=== PATIENT | male | born 2000 | race Caucasian/White ===

== ENCOUNTER → 2018-12-30 07:43 | Outpatient (CLI) | payer BC, SELFPAY ==
--- NOTE | 2018-12-30 07:51 | CA_ITS ---
APPROVED REPORT EXAM: Comprehensive 2D, Doppler, and color-flow Echocardiogram Treatment Plant Operator: Dali Humphrey RVT Ht: 6 ft 0 in Wt: 176lbs BSA: 2.02 BP: 140/90 mmHg Indications: Hypertension 2D Dimensions LVOT 1.90 cm (M/F) 1.5-2.5 M-Mode Dimensions RVDd 1.70 cm (0.9-2.6) LA Diam 2.30 cm (1.9-4.0) LVDd 3.90 cm (3.5-5.7) Ao Diam 2.50 cm (2.0-3.7) LVDs 2.20 cm (3.5-5.7) AV Cusp 2.00 cm (1.5-2.6) IVSd 1.00 cm (0.6-1.1) PWd 1.30 cm (0.6-1.1) EF (Teich) 75.40% FS 43.60% EDV (Teich) 65.90 mL ESV (Teich) 16.20 mL LV Diastology E/A Ratio 1.5 MED E' 10.50 (< 7 cm/sec) E'/MED E' Ratio 9.30 (>14) LAT E' 16.10 (<10 cm/sec) E/LAT E' Ratio 6.00 (>14) Aortic Valve AoV Peak Alfonzo. 118.00 (50-130 cm/s) AO Peak GR. 6.00 mmHg Mitral Valve MV E Max Alfonzo. 97.20 (40-130 cm/s) MV A Velocity 65.60 (40-130 cm/s) E/A Ratio 1.50 Pulmonary Valve PA Accel Time 239.00 (>120 msec) Left Ventricle Left atrium is normal size, left ventricle is normal size, there is preserved left ventricular systolic function, visually estimated ejection fraction 55% with no regional wall motion abnormality. There is no concentric left ventricular hypertrophy seen. Right Ventricle Right atrium and right ventricular normal size and contractility. Aortic Valve Aortic valve is grossly normal, there is no aortic stenosis aortic insufficiency. Mitral Valve Mitral valve is grossly normal, there is no mitral stenosis, there is trace mitral regurgitation. Tricuspid Valve Tricuspid valve is normal, there is mild tricuspid regurgitation. Tricuspid regurgitation jet velocity is inadequate for calculation of the right ventricular systolic pressure. Pulmonic Valve Pulmonic valve is poorly visualized. Great Vessels Aortic root is normal size. Pericardium No significant pericardial effusion noted. Conclusion 1. Normal left ventricular size, preserved left ventricular systolic function, visually estimated ejection fraction 55% with no regional wall motion abnormality. No concentric left ventricular hypertrophy seen, diastolic parameters are within normal range. 2. Trace mitral and mild tricuspid regurgitation. 3. No significant pericardial effusion noted. Electronically signed by : Richardson Blanca, 12/31/2018 06:19:29
== END ==
PROVIDERS: PCP Family Medicine; Visit Provider Family Medicine
DX: I10 Essential (primary) hypertension (principal)
CPT/HCPCS: 93306

== ENCOUNTER 2020-08-08 08:22 | Emergency (ER) | payer BC, SELFPAY ==
[2020-08-08] VITALS (7 sets, daily range): BP systolic 124–177; BP diastolic 76–105; PULSE 67–99; RESP 15–18; TEMP 36.8; O2SAT 97–99; BMI 24.4
--- NOTE | 2020-08-08 08:16 | ECG_ITS ---
APPROVED REPORT Exam: Resting ECG HR:99 bpm ECG Measurements Heart Rate 99 AXES NH 148 P 79 QRSd 92 QRS 72 QT 334 T 32 QTc 428 Conclusion Normal sinus rhythm Normal ECG Electronically signed by : Mio Cabezas, 08/10/2020 08:51:58
--- NOTE | 2020-08-08 08:23 | XR_ITS ---
PROCEDURE INFORMATION: Exam: XR Chest Exam date and time: 08/08/2020 8:23 AM Age: 20 years old Clinical indication: Patient HX: Chest pain x 1 year worse today , sheilded TECHNIQUE: Imaging protocol: XR of the chest. Views: 2 views. COMPARISON: No relevant prior studies available. FINDINGS: Lungs: Unremarkable. No consolidation. Pleural spaces: Blunted left costophrenic sulcus, although no effusion seen on lateral view. Likely scarring. No pneumothorax. Heart/Mediastinum: Unremarkable. No cardiomegaly. Bones/joints: Unremarkable. IMPRESSION: 1. No acute findings. 2. Blunted left costophrenic sulcus, although no effusion seen on lateral view. Likely scarring.
[2020-08-08 08:46] LABS: Basophils % 0.4 % (0.1-2.0); Eosinophils # 0.1 K/mm3 (0.0-0.4); Eosinophils % 2.3 % (0.1-12.0); Hematocrit 50.2 % (42.0-52.0); Hemoglobin 16.6 g/dL (14.1-18.0); Lymphocytes # 1.7 K/mm3 (0.7-4.5); Lymphocytes % 30.4 % (10-50); Mean Corpuscular Volume 87.9 fl (80-94); Mean Platelet Volume 8.3 fl (7.4-10.4); Monocytes # 0.4 K/mm3 (0.1-1.0); Monocytes % 8.1 % (1.7-9.3); Neutrophils # 3.2 K/mm3 (1.8-7.8); Neutrophils % 58.8 % (37.0-80.0); Platelet Count 226 K/mm3 (142-424); Red Blood Count 5.71 M/mm3 (4.60-6.20); Red Cell Distribution Width 12.7 % (11.5-17.5); White Blood Count 5.4 K/mm3 (4.8-10.8)
[2020-08-08 08:51] LABS: Anion Gap 10.6 mEq/L (5-15); Blood Urea Nitrogen 8 mg/dl (9-20); Calcium 9.5 mg/dl (8.4-10.2); Carbon Dioxide 26 mmol/L (22.0-30.0); Chloride 107 mmol/L (98-107); Creatinine Clearance Estimated 145 mL/min (50-200); Estimated Glomerular Filt Rate 106 ml/min (>60); GFR (African American) 128 ML/MIN (>60); Glucose 99 mg/dl (74-100); Potassium 3.6 mmoL/L (3.5-5.1); Sodium 140 mmol/L (136-145)
--- NOTE | 2020-08-08 08:56 | PC.NURSE ---
Pt to rad.
[2020-08-08 09:03] LABS: Troponin I < 0.01 ng/ml (0.00-0.034)
[2020-08-08 09:17] LABS: D-Dimer 0.89 ug/mL (0.0-0.5)
--- NOTE | 2020-08-08 10:31 | PC.NURSE ---
Pt states he is pain free at this time.
--- NOTE | 2020-08-08 10:33 | CT_ITS ---
PROCEDURE INFORMATION: Exam: CTA Chest With Contrast Exam date and time: 08/08/2020 10:33 AM Age: 20 years old Clinical indication: Patient HX: Chest pain , elevated d-dimer .89; Additional info: Chest pain, elevated ddimer TECHNIQUE: Imaging protocol: Computed tomographic angiography of the chest with contrast. 3D rendering (Not supervised by radiologist): MIP and/or 3D reconstructed images were created by the technologist. Radiation optimization: All CT scans at this facility use at least one of these dose optimization techniques: automated exposure control; mA and/or kV adjustment per patient size (includes targeted exams where dose is matched to clinical indication); or iterative reconstruction. Contrast material: ISOVUE 370; Contrast volume: 70 ml; Contrast route: INTRAVENOUS (IV); COMPARISON: CR XR CHEST 2V 08/08/2020 8:48 AM FINDINGS: Pulmonary arteries: Negative for acute pulmonary embolism. Aorta: Unremarkable. No aortic aneurysm. No aortic dissection. Lungs: Unremarkable. No consolidation. No masses. Pleural spaces: Unremarkable. No pneumothorax. No pleural effusion. Heart: Unremarkable. No cardiomegaly. No pericardial effusion. Lymph nodes: Unremarkable. No enlarged lymph nodes. Bones/joints: Unremarkable. No acute fracture. Soft tissues: Unremarkable. IMPRESSION: Negative for acute pulmonary embolism.
--- NOTE | 2020-08-08 11:35 | [facility].EDCP ---
ED Disposition Clinical Impression: Nonspecific chest pain Disposition: Home, Self-Care Condition on Discharge: Good Instructions: DI for Atypical Chest Pain Referrals: Provider,MD Angeline [Primary Care Provider] - Fredy Millan MD [Staff Physician] - - Critical Care Critical Care Time: No Attestation: On 08/08/20, the high probability of a clinically significant, sudden or life threatening deterioration of the following system(s) required my full and direct attention, intervention and personal management. The time I documented below is in addition to time spent performing reported procedures but includes the following listed in this critical care notation. Medical Decision Making - Medical Records Medical records reviewed: Yes: I reviewed the patient's medical records. - Shane Inquiry Pt receiving controlled substance: No Vital Signs: 08/08/20 08:22 08/08/20 08:34 08/08/20 09:00 Temperature 98.3 F Temperature Source Oral Pulse Rate 91 H 95 H Pulse Rate [Right] 99 H Respiratory Rate 18 15 Blood Pressure 158/87 H 132/89 Blood Pressure [Right Arm] 177/105 H Blood Pressure Mean [Right Arm] 129 02 Sat by Pulse Oximetry 99 99 97 08/08/20 09:30 08/08/20 10:32 08/08/20 11:15 Temperature Temperature Source Pulse Rate 77 69 67 Pulse Rate [Right] Respiratory Rate 17 16 Blood Pressure 131/77 141/76 H 126/78 Blood Pressure [Right Arm] Blood Pressure Mean [Right Arm] 02 Sat by Pulse Oximetry 98 97 97 - Lab Data Lab Results 08/08/20 08:27: WBC 5.4, RBC 5.71, Hgb 16.6, Hct 50.2, MCV 87.9, MCH 29.0, MCHC 33.0, RDW 12.7, Plt Count 226, MPV 8.3, Neut % (Auto) 58.8, Lymph % (Auto) 30.4, Valley % (Auto) 8.1, Eos % (Auto) 2.3, Baso % (Auto) 0.4, Neut # (Auto) 3.2, Lymph # (Auto) 1.7, Valley # (Auto) 0.4, Eos # (Auto) 0.1, Baso # (Auto) 0.0 08/08/20 08:27: Sodium 140, Potassium 3.6, Chloride 107, Carbon Dioxide 26, Anion Gap 10.6, BUN 8 L, Creatinine 0.90, Estimated Creat Clear 145, Estimated GFR 106, Est GFR ( Amer) 128, Glucose 99, Calcium 9.5, Troponin I < 0.01 08/08/20 08:27: D-Dimer 0.89 H Result diagrams: 08/08/20 08:27 08/08/20 08:27 Orders (Tests/Meds): ED MEDICATIONS Generic Name Dose Route Start Last Admin Trade Name Freq PRN Reason Stop Dose Admin Sodium Chloride 1,000 mls @ 999 mls/hr 08/08/20 10:45 08/08/20 10:43 Sod Chlor 0.9% 1000ml Bag IV 08/08/20 11:45 999 mls/hr .Q1H1M YUE Administration Discontinued Medications Generic Name Dose Route Start Last Admin Trade Name Freq PRN Reason Stop Dose Admin Iopamidol 70 ml 08/08/20 10:55 08/08/20 10:57 Iopamidol-370 (76%);100ml Bottle IV 08/08/20 10:56 70 ml ONCE ONE Administration Sodium Chloride 50 ml 08/08/20 10:55 08/08/20 10:57 0.9 % Sodium Chloride 50 Ml Vial IV 08/08/20 10:56 50 ml ONCE ONE Administration Sodium Chloride 10 ml 08/08/20 10:55 08/08/20 10:57 Sodium Chloride 0.9% 10ml Syr (Rad Only) IV 08/08/20 10:56 10 ml ONCE ONE Administration ORDERS Category Date Time Status Troponin I Q3H Lab 08/08/20 11:30 Ordered Troponin I Q3H Lab 08/08/20 14:30 Ordered - Radiology Data #1 Image(s): Chest Image Reviewed: Yes I reviewed the patient's radiology results, Yes I discussed the image results w/the radiologist, Yes I have reviewed radiologist's interpretation Preliminary Findings: Normal/NAD - CT Data CT Scan: Chest Time Received: 11:[address] Reviewed: Yes: I have reviewed the patient's CT results, I have viewed the radiologist's interpretation Preliminary Findings: Normal/NAD - ECG Data Tracing #1 ECG initial impression date: 08/08/20 ECG initial impression time: 08:18 ECG normal with no acute: arrhythmias, ischemia, conduction abnormalities, chamber hypertrophy Normal Sinus Rhythm: Yes - Reevaluation(s) Time: 11:39 Reevaluation #1: On reevaluation, patient is pain-free. Negative troponin. CTA unremar
== END 2020-08-08 11:46 | disposition home or self-care (01) ==
PROVIDERS: Emergency Provider Emergency Medicine
DX: R07.89 Other chest pain (principal); Z88.1 Allergy status to other antibiotic agents
CPT/HCPCS: 71046; 71275; 80048; 84484; 85025; 85378; 93005; 96365; 99282; Q9967

== ENCOUNTER → 2020-12-22 13:25 | Outpatient (CLI) | payer BC, SELFPAY | PROVIDERS: PCP Family Medicine; Visit Provider Nurse Practitioner | DX: Z20.822 Contact with and (suspected) exposure to COVID-19 (principal) | CPT/HCPCS: C9803; U0003; U0005 ==

== ENCOUNTER → 2021-03-29 14:55 | Outpatient (CLI) | payer BC, SELFPAY | PROVIDERS: PCP Family Medicine; Visit Provider Nurse Practitioner | DX: Z20.822 Contact with and (suspected) exposure to COVID-19 (principal) | CPT/HCPCS: C9803; U0003; U0005 ==

== ENCOUNTER → 2021-04-23 11:53 | Outpatient (CLI) | payer BC, SELFPAY | PROVIDERS: Visit Provider Nurse Practitioner Family | DX: U07.1 COVID-19 (principal) | CPT/HCPCS: C9803; U0003; U0005 ==

== ENCOUNTER → 2021-06-25 11:14 | Outpatient (CLI) | payer BC, SELFPAY ==
[2021-06-25 13:59] LABS: Basophils % 0.4 % (0.1-2.0); Eosinophils % 0.2 % (0.1-12.0); Hematocrit 48.9 % (42.0-52.0); Hemoglobin 15.8 g/dL (14.1-18.0); Lymphocytes # 0.4 K/mm3 (0.7-4.5); Lymphocytes % 5.1 % (10-50); Mean Corpuscular HGB Conc 32.3 g/dL (31.8-35.4); Mean Corpuscular Hemoglobin 30.3 pg (27.0-31.2); Mean Corpuscular Volume 93.8 fl (80-94); Mean Platelet Volume 9.7 fl (7.4-10.4); Monocytes # 0.4 K/mm3 (0.1-1.0); Monocytes % 5.5 % (1.7-9.3); Neutrophils # 6.5 K/mm3 (1.8-7.8); Neutrophils % 88.8 % (37.0-80.0); Platelet Count 228 K/mm3 (142-424); Red Blood Count 5.21 M/mm3 (4.60-6.20); Red Cell Distribution Width 13.5 % (11.5-17.5); White Blood Count 7.3 K/mm3 (4.8-10.8)
[2021-06-25 14:26] LABS: MANUAL DIFFERENTIAL MANUAL DIFFERENTIAL (MANUAL DIFF)
[2021-06-25 18:18] LABS: Eosinophils % 1 % (0-3); Lymphocytes % 4 % (10-50); Neutrophils % 86 % (42-76); Platelet Estimate Normal; RBC Morphology Normal; Total Cells Counted 100; Toxic Granulation 1+
== END ==
PROVIDERS: PCP Family Medicine; Visit Provider Family Medicine
DX: Z20.822 Contact with and (suspected) exposure to COVID-19 (principal); J10.1 Influenza due to other identified influenza virus with other respiratory manifestations
CPT/HCPCS: 36415; 85007; 85025; 87275; 87276; C9803; U0003; U0005

== ENCOUNTER → 2021-12-19 08:26 | Outpatient (CLI) | payer BC, SELFPAY ==
[2021-12-19 08:41] LABS: Basophils # 0.1 K/mm3 (0-0.2); Basophils % 1.4 % (0.1-2.0); Eosinophils # 0.2 K/mm3 (0.0-0.4); Eosinophils % 3.5 % (0.1-12.0); Hematocrit 53.3 % (42.0-52.0); Hemoglobin 17.3 g/dL (14.1-18.0); Lymphocytes # 1.6 K/mm3 (0.7-4.5); Mean Corpuscular HGB Conc 32.4 g/dL (31.8-35.4); Mean Corpuscular Hemoglobin 29.9 pg (27.0-31.2); Mean Corpuscular Volume 92.4 fl (80-94); Mean Platelet Volume 8.2 fl (7.4-10.4); Monocytes # 0.4 K/mm3 (0.1-1.0); Monocytes % 6.4 % (1.7-9.3); Neutrophils # 3.5 K/mm3 (1.8-7.8); Neutrophils % 60.6 % (37.0-80.0); Platelet Count 265 K/mm3 (142-424); Red Blood Count 5.76 M/mm3 (4.60-6.20); Red Cell Distribution Width 12.6 % (11.5-17.5); White Blood Count 5.8 K/mm3 (4.8-10.8)
[2021-12-19 09:07] LABS: Alanine Aminotransferase 28 U/L (12-78); Albumin Level 4.5 g/dl (3.5-5.0); Albumin/Globulin Ratio 1.6 (1.1-1.8); Alkaline Phosphatase 73 U/L (38-126); Aspartate Amino Transferase 29 U/L (17-59); Bilirubin,Total 1.4 mg/dl (0.2-1.3); Blood Urea Nitrogen 15 mg/dl (9-20); Calcium 9.2 mg/dl (8.4-10.2); Carbon Dioxide 28 mmol/L (22.0-30.0); Chloride 106 mmol/L (98-107); Chol/HDL Ratio 3.3 (1-3.5); Cholesterol 194 mg/dl (140-200); Estimated Glomerular Filt Rate 105 ml/min (>60); GFR (African American) 127 ML/MIN (>60); Globulin 2.9 g/dL (1.3-3.2); Glucose 98 mg/dl (74-100); HDL Cholesterol 58 mg/dl (40-60); Sodium 140 mmol/L (136-145); Total Protein,Serum 7.4 g/dl (6.3-8.2); Triglycerides 82 mg/dl (30-150); VLDL Cholesterol 16 mg/dL (0-40)
[2021-12-19 09:18] LABS: Direct LDL Cholesterol 100.74 mg/dL (100-129)
[2021-12-19 09:37] LABS: Thyroid Stimulating Hormone 2.29 uIU/mL (0.465-4.68)
== END ==
PROVIDERS: PCP Family Medicine; Visit Provider Family Medicine
DX: R00.0 Tachycardia, unspecified (principal); I10 Essential (primary) hypertension; R53.83 Other fatigue; E78.5 Hyperlipidemia, unspecified
CPT/HCPCS: 36415; 80053; 80061; 84443; 85025

== ENCOUNTER → 2022-01-27 10:09 | Outpatient (CLI) | payer BC, SELFPAY ==
[2022-01-27 19:19] LABS: Basophils # 0.1 K/mm3 (0-0.2); Basophils % 0.4 % (0.1-2.0); Eosinophils # 0.1 K/mm3 (0.0-0.4); Eosinophils % 0.7 % (0.1-12.0); Hematocrit 50.9 % (42.0-52.0); Hemoglobin 16.2 g/dL (14.1-18.0); Lymphocytes # 1.2 K/mm3 (0.7-4.5); Mean Corpuscular HGB Conc 31.8 g/dL (31.8-35.4); Mean Corpuscular Hemoglobin 29.3 pg (27.0-31.2); Mean Platelet Volume 9.9 fl (7.4-10.4); Monocytes # 0.8 K/mm3 (0.1-1.0); Monocytes % 6.2 % (1.7-9.3); Neutrophils # 10.3 K/mm3 (1.8-7.8); Neutrophils % 82.8 % (37.0-80.0); Platelet Count 266 K/mm3 (142-424); Red Blood Count 5.53 M/mm3 (4.60-6.20); Red Cell Distribution Width 12.7 % (11.5-17.5); White Blood Count 12.5 K/mm3 (4.8-10.8)
== END ==
PROVIDERS: PCP Family Medicine; Visit Provider Family Medicine
DX: Z20.822 Contact with and (suspected) exposure to COVID-19 (principal)
CPT/HCPCS: 36415; 85025; 87275; 87276; C9803; U0003; U0005

== ENCOUNTER 2022-01-28 11:47 | Emergency (ER) | payer BC, SELFPAY ==
[2022-01-28 12:51] VITALS: BP 134/78; PULSE 105; RESP 16; TEMP 37.7; O2SAT 98; BMI 14.6
--- NOTE | 2022-01-28 12:52 | EXP.UTC ---
Discharge Plan Disposition Patient Disposition: Home, Self-Care Prescriptions Prescriptions: New azithromycin [Zithromax] 250 mg tablet 250 mg PO UD DOSE PK Qty: 6 0RF Rx Instructions: Take two (2) tablets today, then one (1) tablet days #2 thru #5 benzonatate [benzonatate] 100 mg capsule 100 mg PO TIDP PRN (Reason: Cough) Qty: 30 0RF methylprednisolone 4 mg Tablets,Dose Pack 4 mg PO DIRECTED Qty: 21 0RF No Action metoprolol succinate 100 mg tablet extended release 24 hr PO Label Comments: TAKE 1 TABLET BY MOUTH ONCE DAILY Referrals Follow up/Referrals: David Obrien MD [Primary Care Provider] - See instructions Activity Restrictions/Add. Instructions Additional Instructions/Restrictions: Drink plenty of fluids. Take tylenol or ibuprofen for pain or fever. Take the medications as directed. Follow up with your regular doctor. GO TO THE ER FOR ANY WORSENING SYMPTOMS Clinical Impressions Clinical Impression: Pharyngitis Instructions Patient Instructions: DI for Pharyngitis/Tonsillopharyngitis -- Adult Discharge ED Provider: Yohan Vivas [facility] General Stated complaint: sore throat here yesterday for f/u Time Seen by Provider: 01/28/22 12:52 History of Present Illness Provider Complaint: He is back to f/u today after being here yesterday for sore throat. He states that his throat has got more sore. He wants to be checked for strep throat. Related Data Home Medications Medication Instructions Recorded Confirmed metoprolol succinate 100 mg ea PO 04/23/21 04/23/21 tablet,extended release 24 hr Previous Rx's Medication Instructions Recorded azithromycin 250 mg tablet 250 mg PO UD DOSE PK #6 tabs 01/28/22 (Zithromax) benzonatate 100 mg capsule 100 mg PO TIDP PRN Cough #30 caps 01/28/22 methylprednisolone 4 mg tablets in 4 mg PO DIRECTED #21 tabs 01/28/22 a dose pack Allergies Allergy/AdvReac Type Severity Reaction Status Date / Time amoxicillin Allergy Verified 01/28/22 12:55 clavulanic acid Allergy Verified 01/28/22 12:55 [facility] Social History Smoking Status: Never smoker alcohol intake: current substance use type: denies use current occupational status: employed Travel in the last 8 weeks: None ROS Obtained: Yes All systems reviewed & no additional complaints except as documented Constitutional Constitutional: Reports chills and Reports fever(s) Eyes Eyes: Denies eye discharge ENT Ears, Nose, Mouth, and Throat: Reports as per HPI Cardiovascular Cardiovascular: Denies chest pain Respiratory Respiratory: Denies chest congestion and Reports cough Gastrointestinal Gastrointestingal: Reports nausea; Denies abdominal pain, constipation, cramping, diarrhea or vomiting Musculoskeletal Musculoskeletal: Denies arthralgias Integumentary/Breasts Skin/Breast: Denies rash Neurologic Neurologic: Denies paresthesias Physical Exam General General appearance: alert and in no apparent distress Head Head exam: atraumatic, normocephalic and normal inspection Eye Eye exam: Present normal appearance, PERRL and EOMI ENT ENT exam: Present mucous membranes moist and normal external ear exam Expanded ENT Exam TM/Canal exam: Bilateral TM: erythema and bulging Nose exam: Absent sinus tenderness Mouth exam: Present normal external inspection; Absent drooling Teeth exam: Present normal inspection Throat exam: Present tonsillar erythema, tonsillomegaly and tonsillar exudate Neck Neck exam: Present normal inspection, full ROM and trachea midline; Absent tenderness, meningismus or lymphadenopathy Chest Chest inspection: Present normal inspection and symmetric chest wall rise; Absent tenderness Respiratory Respiratory exam: Present normal lung sounds bilaterally; Absent respiratory distress, wheezes or stridor Cardiovascular Cardiovascular exam: Present regular ra
[2022-01-28 13:19] LABS: UTC Strep Screen (Rapid) Negative (Negative)
[2022-01-28 13:20] VITALS: BP 134/78; PULSE 105; RESP 16; TEMP 37.7
== END 2022-01-28 13:22 | disposition home or self-care (01) ==
PROVIDERS: Emergency Provider Nurse Practitioner Family; PCP Family Medicine
DX: J02.9 Acute pharyngitis, unspecified (principal); R50.9 Fever, unspecified; R05.9 Cough, unspecified; Z79.52 Long term (current) use of systemic steroids; Z79.899 Other long term (current) drug therapy; Z88.0 Allergy status to penicillin; Z88.1 Allergy status to other antibiotic agents; Z88.3 Allergy status to other anti-infective agents; Z88.8 Allergy status to other drugs, medicaments and biological substances
CPT/HCPCS: 87880; 99213; G0463

== ENCOUNTER 2022-02-11 17:21 | Emergency (ER) | payer BC, SELFPAY ==
[2022-02-11 18:47] VITALS: BP 138/79; PULSE 82; RESP 16; TEMP 36.9; O2SAT 98; BMI 22.4
--- NOTE | 2022-02-11 18:53 | EXP.UTC ---
Discharge Plan Disposition Patient Disposition: Home, Self-Care Condition: Good Prescriptions Prescriptions: New azithromycin [Zithromax] 250 mg tablet 250 mg PO UD DOSE PK Qty: 6 0RF Rx Instructions: Take two (2) tablets today, then one (1) tablet days #2 thru #5 [id number] [Bromfed DM] 2-30-10 mg/5 mL Syrup 5 ml PO Q6H PRN (Reason: Cough) Qty: 240 0RF No Action metoprolol succinate 100 mg tablet extended release 24 hr PO Label Comments: TAKE 1 TABLET BY MOUTH ONCE DAILY azithromycin [Zithromax] 250 mg tablet 250 mg PO UD DOSE PK Qty: 6 0RF Rx Instructions: Take two (2) tablets today, then one (1) tablet days #2 thru #5 benzonatate [benzonatate] 100 mg capsule 100 mg PO TIDP PRN (Reason: Cough) Qty: 30 0RF methylprednisolone 4 mg Tablets,Dose Pack 4 mg PO DIRECTED Qty: 21 0RF Referrals Follow up/Referrals: David Obrien MD [Primary Care Provider] - See instructions Activity Restrictions/Add. Instructions Additional Instructions/Restrictions: Drink plenty of fluids. Take tylenol or ibuprofen for pain or fever. Take the medications as directed. Follow up with your regular doctor. GO TO THE ER FOR ANY WORSENING SYMPTOMS Clinical Impressions Clinical Impression: Pharyngitis, Sinusitis Instructions Patient Instructions: DI for Pharyngitis/Tonsillopharyngitis -- Adult Discharge ED Provider: Yohan Vivas [facility] General Stated complaint: sore throat,Body Aches [place] Mode of Arrival: Ambulatory Source of Information: Patient Limitations: No Limitations Time Seen by Provider: 02/11/22 18:51 Description of Symptoms (Recalled from Triage Doc. by RN): pt comes in with c/o sore throat, cough, body aches. symptoms began a few days ago HEENT Symptoms (Recalled from RN notes): Yes Resp Symptoms (Recalled from RN notes): Yes Skin Symptoms (Recalled from RN notes): No MS Symptoms (Recalled from RN notes): No Functional Status (Recalled from RN notes): n/a History of Present Illness Provider Complaint: He states that he has had a sore throat and he has felt bad for the past 2 days. Related Data Home Medications Medication Instructions Recorded Confirmed metoprolol succinate 100 mg ea PO 04/23/21 04/23/21 tablet,extended release 24 hr Previous Rx's Medication Instructions Recorded azithromycin 250 mg tablet 250 mg PO UD DOSE PK #6 tabs 01/28/22 (Zithromax) benzonatate 100 mg capsule 100 mg PO TIDP PRN Cough #30 caps 01/28/22 methylprednisolone 4 mg tablets in 4 mg PO DIRECTED #21 tabs 01/28/22 a dose pack azithromycin 250 mg tablet 250 mg PO UD DOSE PK #6 tabs 02/11/22 (Zithromax) [id number]-gtrlqhacbavsckh-[id number] 5 ml PO Q6H PRN Cough #240 mL 02/11/22 2 mg-30 mg-10 mg/5 mL oral syrup (Bromfed DM) Allergies Allergy/AdvReac Type Severity Reaction Status Date / Time amoxicillin Allergy Verified 02/11/22 18:51 clavulanic acid Allergy Verified 02/11/22 18:51 Worker's Comp Is this a Worker's Comp case?: No PFSH PFSH Social History Smoking Status: Never smoker alcohol intake: current substance use type: denies use current occupational status: employed Travel in the last 8 weeks: None ROS Obtained: Yes All systems reviewed & no additional complaints except as documented Constitutional Constitutional: Denies chills and Denies fever(s) Eyes Eyes: Denies eye discharge ENT Ears, Nose, Mouth, and Throat: Reports as per HPI Cardiovascular Cardiovascular: Denies chest pain Respiratory Respiratory: Denies chest congestion and Reports cough Gastrointestinal Gastrointestingal: Reports nausea; Denies abdominal pain, constipation, cramping, diarrhea or vomiting Musculoskeletal Musculoskeletal: Denies arthralgias Integumentary/Breasts Skin/Breast: Denies rash Neurologic Neurologic: Denies paresthesias Physical Exam Gener
[2022-02-11 18:55] LABS: UTC Influenza A Antigen Negative (Negative); UTC Strep Screen (Rapid) Negative (Negative)
[2022-02-11 18:56] LABS: UTC Influenza B Antigen Negative (Negative)
[2022-02-11 19:18] VITALS: BP 138/79; PULSE 82; RESP 16; TEMP 36.9
== END 2022-02-11 19:19 | disposition home or self-care (01) ==
PROVIDERS: Emergency Provider Nurse Practitioner Family; PCP Family Medicine
DX: J32.9 Chronic sinusitis, unspecified (principal); J02.9 Acute pharyngitis, unspecified
CPT/HCPCS: 87804; 87880; 99212; G0463

== ENCOUNTER 2023-04-07 15:04 | Emergency (ER) | payer BC, SELFPAY ==
[2023-04-07 15:40] VITALS: BP 154/94; PULSE 106; RESP 19; TEMP 37.6; O2SAT 97; BMI 23.4
--- NOTE | 2023-04-07 15:45 | EXP.UTC ---
Discharge Plan Disposition Patient Disposition: Home, Self-Care Condition: Good Prescriptions Prescriptions: New azithromycin [Zithromax] 250 mg tablet 250 mg PO UD DOSE PK Qty: 6 0RF Rx Instructions: Take two (2) tablets today, then one (1) tablet days #2 thru #5 methylprednisolone 4 mg Tablets,Dose Pack 4 mg PO DIRECTED 6 Days Qty: 21 0RF Rx Instructions: Take 1 pack as directed for 6 days [id number]-[id number] [Bromfed DM] 2-30-10 mg/5 mL Syrup 5 ml PO Q6H PRN (Reason: Cough) Qty: 240 0RF No Action metoprolol succinate 100 mg tablet extended release 24 hr 100 ea PO DAILY Patient Comments: TAKE 1 TABLET BY MOUTH ONCE DAILY Referrals Follow up/Referrals: David Obrien MD [Primary Care Provider] - See instructions Activity Restrictions/Add. Instructions Additional Instructions/Restrictions: Drink plenty of fluids. Take tylenol or ibuprofen for pain or fever. Take the medications as directed. Follow up with your regular doctor. GO TO THE ER FOR ANY WORSENING SYMPTOMS Clinical Impressions Clinical Impression: Sinusitis, Bronchitis Instructions Patient Instructions: DI for Sinusitis, Sinusitis Discharge ED Provider: Yohan Vivas [facility] General Stated complaint: cough,congestion Time Seen by Provider: 04/07/23 15:45 History of Present Illness Provider Complaint: He states that for the past 5 days he has had chest and sinus congestion. He has had fever and malaise also. Related Data Home Medications Medication Instructions Recorded Confirmed metoprolol succinate 100 mg 100 ea PO DAILY 04/23/21 04/07/23 tablet,extended release 24 hr Previous Rx's Medication Instructions Recorded azithromycin 250 mg tablet 250 mg PO UD DOSE PK #6 tabs 04/07/23 (Zithromax) bxczwezyyajqjkc-mybcpijujyezcxe-NZ 5 ml PO Q6H PRN Cough #240 mL 04/07/23 2 mg-30 mg-10 mg/5 mL oral syrup (Bromfed DM) methylprednisolone 4 mg tablets in 4 mg PO DIRECTED 6 days #21 tabs 04/07/23 a dose pack Allergies Allergy/AdvReac Type Severity Reaction Status Date / Time amoxicillin Allergy Verified 02/11/22 18:51 clavulanic acid Allergy Verified 02/11/22 18:51 [facility] Disclaimer: The information contained in this section may have been updated after the patient was seen, as this information can be updated by other users. Medical History (Updated 04/07/23 @ 16:29 by Yohan Vivas APRN) Hypertension Social History Smoking Status: Never smoker alcohol intake: current substance use type: denies use current occupational status: employed Travel in the last 8 weeks: None ROS Obtained: Yes All systems reviewed & no additional complaints except as documented Constitutional Constitutional: Reports poor appetite Eyes Eyes: Reports system reviewed and no additional complaints, except as documented ENT Ears, Nose, Mouth, and Throat: Reports as per HPI Cardiovascular Cardiovascular: Reports system reviewed and no additional complaints, except as documented and Denies chest pain Respiratory Respiratory: Denies shortness of breath, Denies chest congestion, Reports cough, Denies stridor and Denies wheezing Gastrointestinal Gastrointestingal: Reports system reviewed and no additional complaints, except as documented; Denies abdominal pain, diarrhea or vomiting Musculoskeletal Musculoskeletal: Reports system reviewed and no additional complaints, except as documented and Denies arthralgias Integumentary/Breasts Skin/Breast: Reports system reviewed and no additional complaints, except as documented and Denies rash Neurologic Neurologic: Denies paresthesias Allergic/Immunologic Allergic/Immunologic: Denies wheezing Physical Exam General General appearance: alert and in no apparent distress Eye Eye exam: Present normal appearance, PERRL and EOMI ENT ENT exam: Present mucous membranes moist and normal external ear exam Expanded ENT Exam External ear exam: Present normal external inspection TM/Canal exam: Bilateral TM: erythema and bulging Nose exam: Absent sinus tenderness Nasal speculum exam: Bilateral: normal Mouth exam: Present normal external inspection; Absent drooling Teeth exam: Present normal inspection Throat exam: Present tonsillar erythema and tonsillomegaly Neck Neck exam: Present normal inspection, full ROM and trachea midline; Absent tenderness, lymphadenopathy or thyromegaly Chest Chest inspection: Present normal inspection and symmetric chest wall rise; Absent tenderness or rash Respiratory Respiratory exam: Present normal lung sounds bilaterally; Absent respiratory distress, wheezes, stridor or accessory muscle use Cardiovascular Cardiovascular exam: Present regular rate, normal rhythm and normal heart sounds Abdominal Exam Abdominal exam: Present soft; Absent distention, tenderness, guarding, rebound or rigidity Extremities Exam Extremities exam: Present normal inspection, full ROM and normal capillary refill; Absent tenderness or calf tenderness Back Exam Back exam: Present normal inspection and full ROM; Absent tenderness Neurological Exam Neurological exam: Present alert and oriented X3 Psychiatric Psychiatric exam: Present normal affect and normal mood Skin Skin exam: Present warm, dry, intact and normal color Lymphatic Lymphatic Findings: no adenopathy Medical Decision Making Medical Records Medical records reviewed: No I reviewed the patient's medical records. Shane Inquiry Pt receiving controlled substance: No Lab Data Lab results reviewed: Yes I reviewed the patient's lab results.
[2023-04-07 15:51] VITALS: BP 154/94; PULSE 106; RESP 19; TEMP 37.6; O2SAT 97
[2023-04-07 16:28] LABS: UTC Influenza A Antigen Negative (Negative); UTC Influenza B Antigen Negative (Negative)
== END 2023-04-07 16:32 | disposition home or self-care (01) ==
PROVIDERS: Emergency Provider Nurse Practitioner Family; PCP Family Medicine
DX: J20.9 Acute bronchitis, unspecified (principal); J01.90 Acute sinusitis, unspecified; R50.9 Fever, unspecified; R05.9 Cough, unspecified; R09.81 Nasal congestion; R09.89 Other specified symptoms and signs involving the circulatory and respiratory systems; R53.81 Other malaise; I10 Essential (primary) hypertension
CPT/HCPCS: 87804; 99212; 99214; G0463

== ENCOUNTER 2024-09-09 11:45 | Outpatient (CLI) | payer BC, SELFPAY ==
--- NOTE | 2024-09-09 12:11 | ECG_ITS ---
APPROVED REPORT Exam: Resting ECG HR:64 bpm ECG Measurements Heart Rate 64 AXES MA 174 P 77 QRSd 97 QRS 77 QT 348 T 40 QTc 358 Conclusion SINUS RHYTHM NORMAL ECG UNCONFIRMED REPORT Electronically signed by : Mio Cabezas MD 09/11/2024 08:38:02
== END 2024-09-09 23:59 | disposition home or self-care (01) ==
LOC: RT 11:47
PROVIDERS: PCP Nurse Practitioner Family; Visit Provider Nurse Practitioner Family
DX: I49.1 Atrial premature depolarization (principal); I49.3 Ventricular premature depolarization
CPT/HCPCS: 93005; 93270

== ENCOUNTER 2024-09-18 13:29 | Outpatient (CLI) | payer BC, SELFPAY ==
--- OUTSIDE RECORDS SUMMARY | 2023-12-13 07:45 | XMS_ITS ---
Author Organization Michelle Address [address] [facility] [address] N[address]gado [id number] Care Team Providers Care Publications Editor Name Role Phone Charlie Sanabria Primary Care Provider [phone] Argenis Valadez [phone] Allergies Allergen (clinical drug ingredient) Drug/Non Drug [...] day for 90 days Active Vital Signs Weight 163.4 lbs 12/13/2023 Blood pressure systolic 126 mm Hg 12/13/19 24 Blood pressure diastolic 80 mm Hg 024 Heart Rate 85 /min 12/13/2023 Height 71.25 in 12/13/2023 BMI 22.63 kg/m2 12/13/2023 Encounters Encounter Location Date Provider Diagnosis Michelle [address] [facility] [address] [place] [phone] 12/13/2023 Argenis Obrien Hypertension, unspecified type I10 [...] Notes * GARFIELD RANGELOB:2000 (24 yo M)Acc No.[id number]:12/13/2023 Progress Notes Patient: ROBERT KIM Provider: Argenis Obrien M.D. :2000 A ge:23 Y S ex:Male Date:12/13/2023 Address:[address] [place] [address] [address], [place], [id number] Pcp:Charlie Sanabria Subjective: * Chief Complaints: * [...] Year * Billing Information: * Visit Code: 70689 Office Visit, Est Pt., Level 3. * Procedure Codes: * Electronic signature of Argenis Obrien MD on 09/18/2024 at 02:30 PM EDT Sign off status: Pending * Provider: Argenis Obrien M.D. Date: 0 12/13/2023 Generated for Ginai mirna/Yao/eTransmitting on: 0 09/18/2024 02:30 PM EDT History and Physical Notes * [...]
--- OUTSIDE RECORDS SUMMARY | 2024-09-08 17:30 | XMS_ITS | Encounter Summary ---
Author Organization [facility] Address [address] [place] [phone] Phone [email or web address] Care Team Providers Care Manager Therapy Name Role Phone Unavailable Primary Care Provider Unavailabl e Reason for Visit * Reason Comments Care Coordination Encounter Details Date Type Department Care Team (Latest Contact Info) Description 09/08/2024 5:30 PM EDT Clinical Support [place] [address] [place] [phone] [place] [address] [place] [phone] Lightheadedness (Primary Dx); Tachycardia Social History Tobacco Use Types Packs/Day Years Used Date Smoking Tobacco: Never Smokeless Tobacco: Never Tobacco Cessation:Counseling Given: Not Answered Depression Answer Date Recorded PHQ Total Score 0 09/06/2023 Stress Answer Date Recorded Stress in your Life Not on file 02/11/2024 Dealing with Stress 3 02/11/2024 Sex and Gender Information Value Date Recorded Sex Assigned at Not on file Legal Sex Male 12:55 PM CDT Gender Identity Not on file Sexual Orientation Not on file documented as of this encounter Last Filed Vital Signs Vital Sign Reading Time Taken Comments Blood Pressure 150/90 09/08/2024 5:05 PM EDT Pulse 111 09/08/2024 5:05 PM EDT Temperature - - Respiratory Rate 18 09/08/2024 5:05 PM EDT Oxygen Saturation 98% 09/08/2024 5:45 PM EDT Inhaled Oxygen Concentration - - Weight - - Height - - Body Mass Index - - documented in this encounter Patient Instructions * Patient Instructions* SINDI Pettit - 09/08/2024 5:30 PM EDT Home; TM is choosing to go home. Not light headed at discharge. Declined ER, but will monitor HR and go if concerns or increased HR. F/u PCP tomorrow. RTC with release to RTW note. documented in this encounter Progress Notes * SINDI Pettit - 09/08/2024 5:30 PM EDT Subjective Jayson Rangel is a 24 y.o. male. 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 Russell Responded to tones dropped for hearing racing in 3000. Onset: on and off a couple days, started when he was driving to work Symptoms: heart racing, lightlessness, and bilateral arm tingling Transported TM back to [facility] 1999 via [facility] without stretcher. Notes: Upon arrival to scene, TM is standing at the bottom of up stairs break room area. TM repots that he started feeling his heart racing on his way to work. Heart rate obtained: 144. Reviewed allergies, medication, and medical/surgical history with -view chart for further details. TM transported to [facility] 1999 via [employer] per this RN and EMT. TM assisted to ER bed 1. ECG 12 lead obtained. Vitals obtained. FSB. TM reports that he feelsshaky and is having bilateral n/t in both arms. TM reports that he has been having these symptoms on and off for a couple days with some fatigue after eating. TM reports that he has taken his BP medication today and has ate pizza today. Denies any energy drinks or caffeine beverages. TM reports that after sitting, he feels to be feeling some better. A&O x4. Smile and soc analyst strength is equal and smile is symmetrical. Report gave to SHAMIKA Pettit. Triage nurse: KARTIK Zavala, RN This was an emergency call with a disruption in patient care and scheduled clinic appointments. History Reviewed: Tobacco Allergies Meds Med Hx Surg Hx See CC above TM is here for Emergency Evaluation after tones dropped for heart racing. TM states increased HR started while driving to work today. He has an cynthia on his phone to check his HR and it was 130-140's. His cynthia shows that his HR has been 50-70s previously. No energy drink. EKG Sinus tach, HR 110. TM with HR 144 on scene. TM states he has been on metoprolol XL 100mg daily for 2 years for HTN. No missed doses. +LH/Dizzy. + numbness/tingling bilateral UE. No Cp, no SOA now, no nausea vomiting, no tobacco use. PCP is Dr Downey. While at [facility], his symptoms and HR improved, but due to concerns of elevated HR with working and moving about, he has decided to go home and rest; he will go to the ER if concerns or increased HR. TM declined ALS. Review of Systems Respiratory: Negative for shortness of breath. Cardiovascular: Positive for palpitations. Negative for chest pain. Gastrointestinal: Negative for diarrhea, nausea and vomiting. Neurological: Positive for dizziness, light-headedness and numbness. PHQ-9 Total Score: 0 (09/08/2024 5:02 PM) Objective Vitals: 09/08/24 1705 09/08/24 1743 09/08/24 1744 09/08/241744 BP: (!) 150/90 Pulse: (!) 111 Resp: 18 SpO2: 97% 98% 98% Orthostatic Vitals: 09/08/24 1743 09/08/24 1744 09/08/241744 Orthostatic BP: 128/75 128/80 134/73 Patient Position: Lying Sitting Standing BP Location: Right arm Right arm Right arm Orthostatic Pulse: 91 102 110 Results for orders placed or performed in visit on 09/08/24 POCT glucose Collection Time: 09/08/24 5:04 PM Result Value Ref Range Glucose, POC 133 (A) 65 - 99 mg/dL Glucose (Glucometer), POC IQC Yes, verified internal control performed correctly. Lot Number Expiration Date Physical Exam Vitals and nursing note reviewed. Constitutional: General: He is not in acute distress. Appearance: Normal appearance. He is well-developed. He is not ill-appearing. HENT: Mouth/Throat: Mouth: Mucous membranes are moist. Pharynx: Oropharynx is clear. Eyes: Extraocular Movements: Extraocular movements intact. Pupils: Pupils are equal, round, and reactive to light. Cardiovascular: Rate and Rhythm: Normal rate and regular rhythm. Heart sounds: Normal heart sounds. Pulmonary: Effort: Pulmonary effort is normal. No respiratory distress. Breath sounds: Normal breath sounds. Abdominal: General: Bowel sounds are normal. Palpations: Abdomen is soft. Tenderness: There is no abdominal tenderness. Musculoskeletal: General: No swelling. Skin: General: Skin is warm and dry. Neurological: General: No focal deficit present. Mental Status: He is alert and oriented to person, place, and time. Cranial Nerves: No cranial nerve deficit. Sensory: No sensory deficit. Motor: No abnormal muscle tone. Psychiatric: Behavior: Behavior normal. Thought Content: Thought content normal. Comments: Slightly anxious. Assessment: ICD-10-CM ICD-9-CM 1. Lightheadedness R42 780.4 POCT glucose ECG 12 lead 2. Tachycardia R00.0 785.0 Orders Placed This Encounter Procedures POCT glucose ECG 12 lead Patient Instructions Home; TM is choosing to go home. Not light headed at discharge. Declined ER, but will monitor HR and go if concerns or increased HR. F/u PCP tomorrow. RTC with release to RTW note. documented in this encounter Plan of Treatment Not on file documented as of this encounter Procedures Procedure Name Priority Date/Time Associated Diagnosis Comments ECG 12-LEAD Routine 09/09/2024 12:55 AM EDT Lightheadedness POCT GLUCOSE Routine 09/08/2024 5:04 PM EDT Lightheadedness documented in this encounter Results * (ABNORMAL) ECG 12 lead (09/09/2024 12:55 AM EDT) Impressions Louann Shipley PA - 09/09/2024 12:55 AM EDT Sinus Tach, HR 110 us Louann DELONG ECG ORDERABLES Final Result * (ABNORMAL) POCT glucose (09/08/2024 5:04 PM EDT) Glucose, POC 133(A) 65 - 99 mg/dL Glucose (Glucometer), POC IQC Yes, verified internal control performed correctly. Lot Number Comment:ER 1 Expiration Date Comment:ER 1 Blood (Blood, Capillary) 09/08/2024 5:04 PM EDT us Louann DELONG POINT OF CARE TEST ORDERABLE S Final Result documented in this encounter Visit Diagnoses Diagnosis Lightheadedness- Primary Dizziness and giddiness Tachycardia Unspecified tachycardia documented in this encounter
--- OUTSIDE RECORDS SUMMARY | 2024-09-09 06:15 | XMS_ITS ---
Author Organization [facility] Address [address] [place] [id number] Care Team Providers Care Test Administrator Name Role Phone Daniele Charlie Primary Care Provider Argenis Obrien Unavailable [phone] Dora Castelan Unavailable [phone] Allergies Allergen (clinical drug ingredient) Drug/Non Drug Allergy documented on EMR Reaction Allergy Type Onset Date Status amoxicillin / clavulanate Augmentin Unknown Drug Allergy Active Results Component Value Reference Range Notes CBC Venipuncture (in house) Reviewed date:09/12/2024 07:10:12 PM Interpretation: Performing Lab: Notes/Report: wbc 6.9 3.5 - 10 lymph 19.6% 15 - 50 mid 4.7% 2 - 15 gran 75.7% 35 - 80 rbc 5.50 3.5 - 5.5 hgb 16.1 11.5 - 16.5 hct 47.8 35 - 55 mcv 86.8 75 - 100 mch 29.3 25 - 35 mchc 33.7 31 - 38 platlet 253 100 - 400 P-Comprehensive Metabolic Pa johny (CMP) Reviewed date:09/12/2024 07:06:42 PM Interpretation:nonfasting BS 116 Performing Lab: Notes/Report: Test performed by [employer] [employer] [address] [place] [address] , [address], [place] [address] Adolfo Borja MD, Summer School Coordinator CLIA: [id number] Sodium 143 135-145 mmol/L Potassium 3.8 3.5-5.3 mmol/L Chloride 107 97-108 mmol/L CO2 23 22-32 mmol/L Glucose 116 65-99 mg/dL BUN 16 6-20 mg/dL Creatinine 0.97 0.70-1.30 mg/dL Calcium 9.4 8.6-10.4 mg/dL eGFR by Creatinine 110 >59 mL/min/1.73m2 Protein 7.1 6.0-8.3 g/dL Albumin 4.7 3.5-5.3 g/dL Alkaline Phosphatase 66 40-129 IU/L ALT (SGPT) 26 <5-55 IU/L AST (SGOT) 24 <5-46 IU/L Bilirubin, Total 0.9 <0.2-1.2 mg/dL A/G Ratio 2.0 1.1-2.5 P-TSH Reviewed date:09/12/2024 07:04:56 PM Interpretation:1.74 Performing Lab: Notes/Report: Test performed by [employer] [address] [place] [address] , [address], [place] [address] Adolfo Borja MD, Summer School Coordinator CLIA: [id number] TSH 1.74 0.43-5.25 mU/L EKG Reviewed date:09/12/2024 07:04:29 PM Interpretation: Performing Lab: Notes/Report: Reason For Referral Diagnosis 1 Heart palpitations ( R00.2) Referral Organization [facility] Referring Provider First Name Dora Referring Provider Last Name Castelan Referring Provider [facility] Referred Provider Cardiology, . Referred Provider Specialty Cardiovascul ar Disease General Notes Brunilda Tabares 2024 11:29:44 AM > faxed to [facility] Cardiology; also lvm for call back as patient needs to be seen Raysa ARMANDO Brynn 09/10/2024 12:06:44 PM > at 01:00pm Referral Priority Routine REASON FOR VISIT Heart racing and tingling in arm Medications Medication SIG (Take, Route, Frequency, Duration) Notes Start Date End Date Status Metoprolol Succinate ER 100 MG 1 tab(s) orally once a day for 90 days Active Problems Problem Type SNOMED Code ICD Code Onset Dates Problem Status W/U Status Risk Notes Problem Chronic fatigue (R53.82) Active confirmed Vital Signs Weight 165.4 lbs 09/09/2024 Blood pressure systolic 120 mm Hg 09/10/19 25 Blood pressure diastolic 80 mm Hg 025 Heart Rate 82 /min 09/09/2024 Height 71.25 in 09/09/2024 BMI 22.9 kg/m2 09/09/2024 Encounters Encounter Location Date Provider Diagnosis [facility] [address] [facility] [address] [place] [id number] 09/09/2024 Dora Castelan Heart palpitations R00.2 ; Screening for thyroid disorder Z13.29 and Chronic fatigue R53.82 Assessments Encounter Date Diagnosis (ICD Code) Assessment Notes Treatment Notes Treatment Clinical Notes Section Notes 09/09/2024 Heart palpitations (ICD-10 - R00.2) Decrease caffiene, order an echo, will get a 2 week holter monitor, and an EKG today. Referral to cardiology- .. Off of work until in to see cardiology. Follow up with [facility] in 1 week if not seen by cardiology; discussed when to go to the ER 09/09/2024 Screening for thyroid disorder (ICD-10 - Z13.29) Labs for thyroid to make sure symptoms are not coming from this 09/09/2024 Chronic fatigue (ICD-10 - R53.82) Check CBC to make sure not anemic, fluids, rest Plan Of Treatment Treatment Notes Assessment Notes Heart palpitations Decrease caffiene, o rder an echo, will get a 2 week holter monitor, and an EKG today. Referral to cardiology- .. Off of work until in to see cardiology. Follow up with [facility] in 1 week if not seen by cardiology; discussed when to go to the ER Screening for thyroid disorder Labs for thyroid to make sure symptoms are not coming from this Chronic fatigue Check CBC to make mauro re not anemic, fluids, rest Pending Test Test Name Order Date Echocardiogram 09/09/2024 Event Recorder 09/09/2024 Referrals Referral Date Details 09/09/2024 09/09/2024, . Cardio logy Next Appt Details Follow Up: 1 Week,prn, Reaso n: Progress Notes * JEAN-PIERREGARFIELDOB:2000 (24 yo M)Acc No.[id number]:09/09/2024 Progress Notes Patient: ROBERT KIM Provider: BUNNY Hahn DOB:2000 A ge:24 Y S ex:Male Date:09/09/2024 Address:[address], [place], [id number] Pcp:Charlie Sanabria Subjective: * Chief Complaints: * 1 . Heart racing and tingling in arm. * HPI: C ardiology: last couple of weeks chest has felt off, had to leave work yesterday r/t dizziness and palpitations; Mom and pt concerned due to + FH with uncle dying at the age of 28 with AMI. 24 year old male presents with c/o Short of Breath. c/o Dizziness. c/o Palpitations f eels heart racing. Pt states on his way to work yesterday he felt like his heart was racing and he states it lasted about 20 minutes or more. Pt denies any chest pain. Pt works at [employer] and went to their clinic and heart was checked out ok. Pt states his BP was a little elevated at 140/something. Pt states he can't remeber the diastolic number. Pt states he has had some fatigue and dizziness as well. Pt states he has had some tingling in his arm off and for about a week. Pt states with the episode yesterday of heart racing he noticed the tingling in his arms was worse. c/o Fatigue. Denies : Chest Pain. D enies : Leg Edema. D enies : Headaches. D enies : Nausea. * ROS: D ERMATOLOGY: no R valeri. [...] 1 tab(s) orally once a day , Discontinued Metoprolol Succinate ER 100 MG Tablet Extended Release 24 Hour 1 tab(s) orally once a day , Medication List reviewed and reconciled with the patient * Allergies: A ugmentin. Objective: * Vitals: W t: 165.4, Temp: 98.3, BP: 120/80, HR: 82, Nurse: DARYL, Ht: 71.25, BMI:22.9. * Examination: G eneral Examination: General Appearance: a lert, anxious, cooperative. Heart: R RR, no ectopics; 70-80/min. Lungs: c lear to auscultation, normal. Neurologic Exam: a lert and oriented. Skin: n ormal, no rash. Peripheral pulses: n ormal (2+) bilaterally. p resents with his mother. Assessment: * Assessment: 1. H eart palpitations - R00.2 (Primary) 2 . S creening for thyroid disorder - Z13.29 3 . C hronic fatigue - R53.82 Plan: * Treatment: Value Reference Range A /G Ratio 2.0 1.1-2.5 - * A lbumin 4.7 3.5-5.3 - g/dL * A lkaline Phosphatase 66 40-129 - IU/L * A LT (SGPT) 26 <5-55 - IU/L * A ST (SGOT) 24 <5-46 - IU/L * B ilirubin, Total 0.9 <0.2-1.2 - mg/dL * B UN 16 6-20 - mg/dL * C alcium 9.4 8.6-10.4 - mg/dL * C hloride 107 97-108 - mmol/L * C O2 23 22-32 - mmol/L * C reatinine 0.97 0.70-1.30 - mg/dL * G lucose 116 H 65-99 - mg/dL * P otassium 3.8 3.5-5.3 - mmol/L * S odium 143 135-145 - mmol/L * P rotein 7.1 6.0-8.3 - g/dL * e GFR by Creatinine 110 >59 - mL/min/1.73m2 * AnneliseYeniDora 09/12/2024 07:05:12 PM EDT >discussed results with pt; faxed to cardiology ?Imaging: Echocardiogram* Brunilda Tabares 09/09/2024 11:24 :50 AM EDT > auth#[id number]; valid 09/09/2024 through 10/08/2024; CPT code 15364; faxed to [facility] Scheduling ?Imaging: Event Recorder ?Imaging: EKG (Performed Date - 09/09/2024)* CastelanYeni munozDora 09/12/2024 07:04:13 PM EDT >was seen by cardiology Notes: Decrease caffiene, order an echo, will get a 2 week holter monitor, and an EKG today. Referral to cardiology- .. Off of work until in to see cardiology. Follow up with [facility] in 1 week if not seen by cardiology; discussed when to go to the ER? Referral To:. Cardiology??Cardiovascular Disease ?Reason: 2.?Screening for thyroid disorder?LAB: P-TSH (Collection Date & Time - 09/09/2024 10:20 AM)?1.74* Value Reference Range T SH 1.74 0.43-5.25 - mU/L * AnneliseYeniDora 09/12/2024 07:04:37 PM EDT >discussed results with pt Notes: Labs for thyroid to make sure symptoms are not coming from this?? 3.?Chronic fatigue?LAB: CBC Venipuncture (in house) (Collection Date & Time - 09/09/2024)* Value Reference Range w bc 6.9 3.5 - 10 * l ymph 19.6% 15 - 50 * m id 4.7% 2 - 15 * g ran 75.7% 35 - 80 * r bc 5.50 3.5 - 5.5 * h gb 16.1 11.5 - 16.5 * h ct 47.8 35 - 55 * m cv 86.8 75 - 100 * m ch 29.3 25 - 35 * m chc 33.7 31 - 38 * p latlet 253 100 - 400 * Marielena Tuttle 09/09/2024 11:55:5 6 AM EDT > Provider reviewed results while patient in office. Notes: Check CBC to make sure not anemic, fluids, rest?? * Procedure Codes: 8 5025 CBC WITH AUTO DIFF, 64389 VENIPUNCT, ROUTINE* * Follow Up: 1 Week,prn * Billing Information: * Visit Code: 21552 Office Visit, Est Pt., Level 4. * Procedure Codes: 91768 CBC WITH AUTO DIFF. 47120 VENIPUNCT, ROUTINE*. * Electronic signature of Jackelin Castelan APRN on 09/18/2024 at 02:30 PM EDT Sign off status: Pending * Provider: BUNNY Hahn Date: 0 09/09/2024 Generated for Jerry bradley/Yao/Ortizsmitting on: 0 09/18/2024 02:30 PM EDT History and Physical Notes * HPI (History of Present Illness) Category Sub-Category Detail Notes Category Not es Cardiology Short of Breath Chest Pain Palpitations feels heart racing. Pt states on his way to work yesterday he felt like his heart was racing and he states it lasted about 20 minutes or more. Pt denies any chest pain. Pt works at [employer] and went to their clinic and heart was checked out ok. Pt states his BP was a little elevated at 140/something. Pt states he can't remeber the diastolic number. Pt states he has had some fatigue and dizziness as well. Pt states he has had some tingling in his arm off and for about a week. Pt states with the episode yesterday of heart racing he noticed the tingling in his arms was worse Dizziness Leg Edema Fatigue Headaches Nausea Examination Category Sub-Category Detail Notes Category Not es General Examination Heart: RRR, no ectopics; 70- 80/min presents with his mother Lungs: clear to auscultatio n, normal General Appearance: alert, anxious, coop erative Skin: normal, no rash Neurologic Exam: alert and oriented Peripheral pulses: normal (2+) bilatera lly Consultation Request Notes Referral Date Referring Provider Referred Provider Not es 09/09/2024 Dora Castelan Cardiology, .
--- OUTSIDE RECORDS SUMMARY | 2024-09-10 16:30 | XMS_ITS | Encounter Summary ---
Author Organization [facility] Address [address] [place] [address] Phone [email or web address] Care Team Providers Care Ironer Or Presser Name Role Phone Unavailable Primary Care Provider Unavailabl e Reason for Visit * Reason Comments Return to Work / Duty Encounter Details Date Type Department Care Team (Latest Contact Info) Description 09/10/2024 4:30 PM EDT [facility] [place] [address] [facility] [address] [place] [address] [place] [address] [place] [phone] Return to work evaluation (Primary Dx) [...] for personal return to work. WD ID: [id number] Employer: [employer] Date of Hire: 02/07/2023 Cost [...] echo next week. TM also saw his dancer or choreographer SINDI Galarza and had another EKG. Was told everything was normal on his end, pending scheduling for CT scan. TM was told by dancer or choreographer that he could return to work regular [...]
--- NOTE | 2024-09-18 | CA_ITS ---
APPROVED REPORT EXAM: Comprehensive 2D, Doppler, and color-flow Echocardiogram [employer] Liaison: Jing Prakash RT(R) Ht: 6 ft 0 in Wt: 165lbs BSA: 1.96 BP: 134/72 mmHg Indications: Palpitations 2D Dimensions Left Atrium 2.67 cm EF AP4 53.90 % LVOT 1.89 cm (M/F) 1.5-2.5 GL Strain -12.8 % M-Mode Dimensions RVDd 1.53 cm (0.9-2.6) LVDd 4.35 cm (3.5-5.7) Ao Diam 2.48 cm (2.0-3.7) LVDs 3.10 cm (3.5-5.7) IVSd 0.61 cm (0.6-1.1) PWd 0.57 cm (0.6-1.1) EF (Teich) 55.60% FS 28.70% EDV (Teich) 85.40 mL ESV (Teich) 37.90 mL LV Diastology E Decel Time 178 (160-240 msec) E/A Ratio 1.30 MED E' 12.1 (>= 7 cm/sec) E'/MED E' Ratio 6.13 (<= 14) LAT E' 16.1 (>= 10 cm/sec) E/LAT E' Ratio 4.61 (<= 14) Mitral Valve MV E Max Alfonzo. 74.0 (40-130 cm/s) MV A Velocity 57.0 (40-130 cm/s) E/A Ratio 1.30 MV Decel. Time 178 (160-240 ms) Left Ventricle The left ventricle is normal size. The left ventricular systolic function is normal. The left ventricular ejection fraction is within the normal range. There is normal left ventricular wall thickness. There is normal LV segmental wall motion. The left ventricular diastolic function is normal. LVEF is 55%. Right Ventricle The right ventricle is normal size. The right ventricular systolic function is normal. Atria The left atrium size is normal. The right atrium size is normal. There is no Doppler evidence of interatrial shunt. Aortic Valve The aortic valve opens well. There is no aortic valvular stenosis. No aortic regurgitation is present. Mitral Valve The mitral valve is normal in structure and function. No evidence of mitral valve stenosis. No Mitral Regurgitation. Tricuspid Valve Tricuspid valve is grossly normal in structure and function. Trace tricuspid regurgitation. There is insufficient TR jet to estimate RVSP. Pulmonic Valve The pulmonary valve is normal in structure. Trace pulmonic regurgitation. Great Vessels The aortic root is normal in size. IVC is normal in size and collapses >50% with inspiration. Pericardium There is no pericardial effusion. Other Information Study Quality: Fair Conclusion Normal biventricular systolic function. No significant valvular stenosis or regurgitation. Electronically signed by : Nani Rao MD 09/27/2024 17:29:33
--- OUTSIDE RECORDS SUMMARY | 2024-09-18 14:32 | XMS_ITS | Clinical Summary ---
Author Organization [facility] Address [address] [place] [address] Phone [email or web address] Care Team Providers Care Propagator Laborer Name Role Phone Unavailable Primary Care Provider Unavailabl e Allergies No known active allergies Medications metoprolol succinate XL (TOPROL-XL) 100 MG 24 hr tablet 100 each. 04/22/2021 Act matty Active Problems Problem Noted Date Diagnosed Date Return to work evaluation 09/10/2024 Encounters Date Type Department Care Team Description 09/10/2024 4:30 PM EDT Clinical Support [address] [address] Ana Whittaker RN Return to work evaluation (Primary Dx) 09/10/[address] [address] Bahman Tuttle MA 09/08/2024 5:30 PM EDT Clinical Support [address] [address] Louann Shipley PA Lightheadedness (Primary Dx); Tachycardia from Last 3 Months Social History Tobacco Use Types Packs/Day Years [...] on file Sexual Orientation Not on file Last Filed Vital Signs Vital Sign Reading Time Taken Comments Blood Pressure 126/81 09/10/2024 4:23 PM EDT Pulse 94 09/10/2024 4:23 PM EDT Temperature 36.5 C (97.7 F) 09/10/2024 4:23 PM EDT Respiratory Rate 18 09/10/2024 4:23 PM EDT Oxygen Saturation 97% 09/10/2024 4:23 PM EDT Inhaled Oxygen Concentration - - Weight 74.8 kg (165 lb) 09/06/2023 1:03 AM EDT Height 182.9 cm (6') 09/06/2023 1:03 AM EDT Body Mass Index 22.38 09/06/2023 1:03 AM EDT Plan of Treatment Health Maintenance Due Date Last Done Comments Dental Cleaning/Exam 1998 HIV Screening 1998 Hepatitis C Screening 1998 HPV Immunization (1 - Male 3 -dose series) 2013 Hep B Infection Screening - Triple Screen 01/02/2016 Hepatitis B Immunization (1 of 3 - 19+ 3-dose series) 2017 Tetanus Diphtheria and Pertu ssis Immunization (1 - Tdap) 2017 Covid-19 Immunization (1 - 2 season) 2023 Annual Preventive Exam 12/21/2023 12/20/2022 Influenza Immunization (Seas on Ended) 2024 01/22/2017 HIB Immunization Aged Out No longer e ligible based on patient's age to complete this topic Hepatitis A Immunization Aged Out No longer eligible based on patient's age to complete this topic Pneumococcal: Ped (0 to 5 Yr s) and At-Risk Member (6 to 64 Yrs) Aged Out No longer e ligible based on patient's age to complete this topic Polio Immunization Aged Out No longer eligible based on patient's age to complete this topic Varicella Immunization Aged Out No lo nger eligible based on patient's age to complete this topic Procedures Procedure Name Priority Date/Time Associated Diagnosis Comments ECG 12-LEAD Routine 09/09/2024 12:55 AM EDT Lightheadedness POCT GLUCOSE Routine 09/08/2024 5:04 PM EDT Lightheadedness from Last 3 Months Results * (ABNORMAL) ECG 12 lead (09/09/2024 12:55 AM EDT) Louann Roche PA - 09/09/2024 12:55 AM EDT Sinus Tach, HR 110 us Louann DELONG ECG ORDERABLES Final Result * (ABNORMAL) POCT glucose (09/08/2024 5:04 PM EDT) Glucose, POC 133(A) 65 - 99 mg/dL Glucose (Glucometer), POC IQC Yes, verified internal control performed correctly. Lot Number Comment:ER 1 Expiration Date Comment:ER 1 Blood (Blood, Capillary) 09/08/2024 5:04 PM EDT Louann DELONG POINT OF CARE TEST ORDERABLE S Final Result from Last 3 Months Insurance OPT OUT NO COPAY NB
--- OUTSIDE RECORDS SUMMARY | 2024-09-18 14:32 | XMS_ITS | Patient Health Record ---
Author Organization [facility] Address [address] [place] [id number] Care Team Providers Care Manager Money Name Role Phone Charlie Sanabria Primary Care Provider [phone] Argenis Obrien Unavailable [phone] Dora Castelan Unavailable [phone] Allergies Allergen (clinical drug ingredient) Drug/Non Drug [...] 116 Performing Lab: Notes/Report: Test performed by [facility] [address] [place] [address] , [address], [place] [address] Adolfo Borja MD, Acid Adjuster CLIA: [id number] Sodium 143 135-145 mmol/L Potassium 3.8 3.5-5.3 [...] Interpretation:1.74 Performing Lab: Notes/Report: Test performed by [facility] [employer] [address] [place] [address] , [address], [place] [address] Adolfo Borja MD, Acid Adjuster CLIA: [id number] TSH 1.74 0.43-5.25 mU/L EKG Reviewed date:09/12/2024 07:04:29 PM Interpretation: Performing Lab: Notes/Report: Medications Medication SIG (Take, Route, Frequency, Duration) Notes Start Date End Date Status Metoprolol Succinate ER 100 MG 1 tab(s) orally once a day for 90 days Active Immunizations Vaccine Route Administration Date Status Comme nts Tetanus Tdap-Adacel (over 7yrs) IM Intramuscular 11/04/2009 Administered Menactra IM Intramuscular 11/04/2009 Administered Fluzone Quad (6months&older) IM Intramuscular 01/22/2017 Administered Fluzone Intradermal Quad private(18-64yrs) ID Intradermal 01/24/2016 Administered Problems Problem Type SNOMED Code ICD Code Onset Dates Problem Status W/U Status Risk Notes Problem Chronic fatigue (R53.82) Active confirmed Problem 48672916 Hypertension, unspecified type (I10) Active confirmed Problem 036640231 IgA deficiency, 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 Vital Signs Heart Rate 82 /min 09/09/2024 Blood pressure diastolic 80 mm Hg 09/09/2024 Height 71.25 in 09/09/2024 Blood pressure systolic 120 mm Hg 09/09/2024 Weight 165.4 lbs 09/09/2024 BMI 22.9 kg/m2 09/09/2024 Encounters Encounter Location Date Provider Diagnosis [facility] [address] [place] [id number] 12/13/2023 Argenis Obrien Hypertension, unspecified type I10 [facility] [address] [facility] [address] [place] [id number] 09/09/2024 Dora Castelan Heart palpitations R00.2 ; Screening for thyroid disorder Z13.29 and Chronic fatigue R53.82 [facility] [address] [place] [id number] 09/10/2024 Dora Castelan [facility] [facility] 36 [facility] [address] [place] [id number] 09/16/2024 Dora Castelan Assessments Encounter Date Diagnosis (ICD Code) Assessment Notes Treatment Notes Treatment Clinical Notes Section Notes 12/13/2023 Hypertension, unspecified type (ICD-10 - I10) 09/09/2024 Screening for thyroid disorder (ICD-10 - Z13.29) Labs for thyroid to make sure symptoms are not coming from this 09/09/2024 Heart palpitations (ICD-10 - R00.2) Decrease caffiene, order an echo, will get a 2 week holter monitor, and an EKG today. Referral to cardiology- .. Off of work until in to see cardiology. Follow up with [facility] in 1 week if not seen by cardiology; discussed when to go to the ER 09/09/2024 Chronic fatigue (ICD-10 - R53.82) Check CBC to make sure not anemic, fluids, rest Plan Of Treatment Pending Test Test Name Order Date Echocardiogram 09/09/2024 Event Recorder 09/09/2024 Insurance Providers Payer Name Payer Address Payer Phone Subscriber Number Group Number Insured Name Patient Relationship to Insured Coverage Start Date Coverage End Date [employer]HA [employer] [address] [place] [address] [id number] 1ES ROBERT RANGEL Self - patient is the insured Medical (General) History Medical History History ICD Code HBP IgA Deficiency Surgical History Surgery Date(Month/Year)
--- OUTSIDE RECORDS SUMMARY | 2024-09-18 14:32 | XMS_ITS | Encounter Summary ---
Author Organization [facility] Address [address] [place] [address] Phone [email or web address] Care Team Providers Care Regrinder Name Role Phone Unavailable Primary Care Provider Unavailabl e Reason for Visit * Reason Onset Date Comments Return to Work / Duty 09/10/2024 Encounter Details Date Type Department Care Team (Late st Contact Info) Description 09/10/2024 Telephone [place] [address] [place] [phone] [place] [address] [place] [phone] Social History Tobacco Use Types Packs/Day Years Used Date Smoking Tobacco: Never Smokeless Tobacco: Never Depression Answer Date Recorded PHQ Total Score 0 09/06/2023 Stress Answer Date Recorded Stress in your Life Not on file 02/11/2024 Dealing with Stress 3 02/11/2024 Sex and Gender Information Value Date Recorded Sex Assigned at Not on file Legal Sex Male 12:55 PM CDT Gender Identity Not on file Sexual Orientation Not on file documented as of this encounter Miscellaneous Notes * Telephone Encounter - Bahman Tuttle MA - 09/10/2024 3:31 PM EDT Jayosn Rangel calls clinic to discuss return to work after personal medical leave of absence for heart issues. WD ID: [id number] Employer: [employer] Date of Hire: 02/07/2023 Cost Center: [id number] Description: ASY 2 Shift: 2nd Full-time GL and #: Mr. Russell Previous/current indefinite restrictions? No LDW: 09/08/2024 DOS: N/A PROCEDURE: N/A SURGEON: N/A RELEASE: Regular Duty 09/10/2024 Additional notes from phone call: N/A If WMLOA, still getting compensation from work comp? No: [employer] If WMLOA, treatment for any personal medical condition during leave? No If PMLOA, work-related injury immediately before leave? No Same day occ or personal follow up scheduled? No Reviewed and/or scheduled for WC/WH? No Request sent to confirm cost center? No -Bahman Ttutle 09/10/2024 documented in this encounter Plan of Treatment Not on file documented as of this encounter Visit Diagnoses Not on filedocumented in this encounter
== END 2024-09-18 23:59 | disposition home or self-care (01) ==
LOC: RT 13:30
PROVIDERS: PCP Nurse Practitioner Family; Visit Provider Nurse Practitioner Family
DX: R00.2 Palpitations (principal)
CPT/HCPCS: 93306

== ENCOUNTER 2024-09-22 11:58 | Outpatient (CLI) | payer BC, SELFPAY ==
--- OUTSIDE RECORDS SUMMARY | 2023-12-13 07:45 | XMS_ITS ---
Author Organization Michelle Address [address] [facility] [address] NINI Salgado [id number] Care Team Providers Care Supervisor Plasma Name Role Phone Charlie Sanabria Primary Care Provider [phone] Argenis Valadez [phone] Allergies Allergen (clinical drug ingredient) Drug/Non Drug Allergy documented on EMR Reaction Allergy Type Onset Date Status amoxicillin / clavulanate Augmentin Unknown Drug Allergy Active REASON FOR VISIT refills Medications Medication SIG (Take, Route, Frequency, Duration) Notes Start Date End Date Status Metoprolol Succinate ER 100 MG 1 tab(s) orally once a day for 90 days Active Metoprolol Succinate ER 100 MG 1 tab(s) orally once a day for 90 days Active Vital Signs Blood pressure systolic 126 mm Hg 12/13/19 24 Blood pressure diastolic 80 mm Hg 024 Heart Rate 85 /min 12/13/2023 Height 71.25 in 12/13/2023 Weight 163.4 lbs 12/13/2023 BMI 22.63 kg/m2 12/13/2023 Encounters Encounter Location Date Provider Diagnosis Michelle [address] [facility] [address] [place]gado [id number] 12/13/2023 Argenis Obrien Hypertension, unspecified type I10 Assessments Encounter Date Diagnosis (ICD Code) Assessment Notes Treatment Notes Treatment Clinical Notes Section Notes 12/13/2023 Hypertension, unspecified type (ICD-10 - I10) Plan Of Treatment Medication Medication Name Sig Start Date Stop Date Notes Metoprolol Succinate ER 100 MG 1 tab(s) orally once a day for 90 days Next Appt Details Follow Up: 1 Year, Reason: Progress Notes * GARFIELD RANGELOB:2000 (24 yo M)Acc No.[id number]:12/13/2023 Progress Notes Patient: ROBERT KIM Provider: Argenis Obrien M.D. :2000 A ge:23 Y S ex:Male Date:12/13/2023 Address:[address] [place] [address] [address], [place], [id number] Pcp:Charlie Sanabria Subjective: * Chief Complaints: * 1 . Refills. * HPI: C ardiology: Pt presents today for a check up and refill of Metoprolol. Pt sts that he has no concerns or complaints at this time. Denies : Chest Pain. D enies : Palpitations. BloodPressure at Home n ot checking. * ROS: D ERMATOLOGY: no R valeri. n o H adolph. G ASTROENTEROLOGY: no N ausea. n o V omiting. n o D iarrhea.? U ROLOGY: no D ifficulty urinating. n o B lood in urine. * Medical History: H BP, IgA Deficiency. * Family History: F ather: alive 35 yrs. M other: alive 31 yrs. P aternal Grand Father: alive. P aternal Grand Mother: alive. M aternal Grand Father: alive. M aternal Grand Mother: alive. 1 sister(s) . . Pts grandfather had a heart attack @ the age of 28, extensive family HX of HTN. * Social History: C URRENT TOBACCO USE S moking Status: P atient does NOT smoke. C affeine: yes, frequency:SOME. Home smoke detector use: yes. Alcohol: No. * Medications: T aking Metoprolol Succinate ER 100 MG Tablet Extended Release 24 Hour 1 tab(s) orally once a day , Medication List reviewed and reconciled with the patient * Allergies: A ugmentin. Objective: * Vitals: W t:163.4, Temp:98.5, BP:126/80, HR:85, Nurse:WINDY, Ht: 71.25, BMI:22.63. * Examination: C ardiology: General Appearance: p leasant, NAD. HEENT: u nremarkable. Carotid upstroke: n ormal, no bruits. Heart sounds: R RR, normal S1, S2. Murmur, click , gallop: n one. Lungs: c lear, no rales or wheezes. Abdomen: p ositive BS, soft, nontender. Extremities: n o leg edema. Assessment: * Assessment: 1. H ypertension, unspecified type - I10 (Primary) Plan: * Treatment: * Follow Up: 1 Year * Billing Information: * Visit Code: 18363 Office Visit, Est Pt., Level 3. * Procedure Codes: * Electronic signature of Argenis Obrien MD on 09/22/2024 at 12:01 PM EDT Sign off status: Pending * Provider: Argenis Obrien M.D. Date: 0 12/13/2023 Generated for Ginai mirna/Yao/eTransmitting on: 0 09/22/2024 12:01 PM EDT History and Physical Notes * HPI (History of Present Illness) Category Sub-Category Detail Notes Category Not es Cardiology Chest Pain Palpitations BloodPressure at Home not checking Examination Category Sub-Category Detail Notes Category Not es Cardiology Lungs: clear, no rales or wheezes HEENT: unremarkable Heart sounds: RRR, normal S1, S2 Abdomen: positive BS, soft, n ontender Carotid upstroke: normal, no bruits Extremities: no leg edema Murmur, click , gallop: none General Appearance: pleasant, NAD
--- OUTSIDE RECORDS SUMMARY | 2024-09-08 17:30 | XMS_ITS | Encounter Summary ---
Author Organization [facility] Address [address] [place] [phone] Phone [email or web address] Care Team Providers Care Lumber Handler Name Role Phone Unavailable Primary Care Provider Unavailabl e Reason for Visit * Reason Comments Care Coordination Encounter Details Date Type Department Care Team (Latest Contact Info) Description 09/08/2024 5:30 PM EDT Clinical Support [place] [address] [place] [phone] [place] [address] [place] [phone] Lightheadedness (Primary Dx); Tachycardia Social History [...] is a 24 y.o. male. 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 Russell Responded to tones dropped for hearing racing in 3000. Onset: on and off a couple days, started when he was driving to work Symptoms: heart racing, lightlessness, and bilateral arm tingling Transported TM back to [facility] 1999 via EZ without stretcher. Notes: Upon arrival to scene, TM is standing at the bottom of up stairs break room area. TM repots that he started feeling his heart racing on his way to work. Heart rate obtained: 144. Reviewed allergies, medication, and medical/surgical history with -view chart for further details. TM transported to [facility] 1999 via [employer] per this RN and EMT. TM assisted [...] feeling some better. A&O x4. Smile and video rental clerk strength is equal and smile is symmetrical. Report gave to SHAMIKA Ptetit. Triage nurse: KARTIK Zavala, RN This was [...] use. PCP is Dr Downey. While at [facility], his symptoms and HR improved, [...]
--- OUTSIDE RECORDS SUMMARY | 2024-09-09 06:15 | XMS_ITS ---
Author Organization [facility] Address [address] [place] [id number] Care Team Providers Care Financial Institution Treasurer Name Role Phone Daniele Charlie Primary Care Provider [phone] Argeins Obrien Unavailable [phone] Dora Castelan Unavailable [phone] Allergies Allergen (clinical drug ingredient) Drug/Non Drug [...] 116 Performing Lab: Notes/Report: Test performed by [employer] [employer] [address] [place] [address] , [address], [place] [address] Adolfo Borja MD, Process Safety Management Engineer CLIA: [id number] Sodium 143 135-145 mmol/L Potassium 3.8 3.5-5.3 [...] Interpretation:1.74 Performing Lab: Notes/Report: Test performed by [employer] [address] [place] [address] , [address], [place] [address] Adolfo Borja MD, Process Safety Management Engineer CLIA: [id number] TSH 1.74 0.43-5.25 mU/L EKG Reviewed date:09/12/2024 07:04:29 PM Interpretation: Performing Lab: Notes/Report: Reason For Referral Diagnosis 1 Heart palpitations ( R00.2) Referral Organization [facility] Referring Provider First Name Dora Referring Provider Last Name Castelan Referring Provider [facility] Referred Provider Cardiology, . Referred Provider Specialty Cardiovascul ar Disease General Notes Brunilda Tabares 2024 11:29:44 AM > faxed to [facility] Cardiology; also lvm for call back [...] W/U Status Risk Notes Problem Chronic fatigue syndrome (82187931) Chronic fatigue (R53.82) Active confirmed Vital Signs Blood pressure systolic 120 mm Hg 09/10/19 25 Blood pressure diastolic 80 mm Hg 025 Heart Rate 82 /min 09/09/2024 Height 71.25 in 09/09/2024 Weight 165.4 lbs 09/09/2024 BMI 22.9 kg/m2 09/09/2024 Encounters Encounter Location Date Provider Diagnosis [facility] [address] [facility] [address] [place] [id number] 09/09/2024 Dora Castelan Heart palpitations R00.2 ; Screening for thyroid disorder Z13.29 ; Chronic fatigue R53.82 and BMI 22.0-22.9, adult Z68.22 Assessments Encounter Date Diagnosis (ICD Code) Assessment [...] to make sure not anemic, fluids, rest 09/09/2024 BMI 22.0-22.9, adult (ICD-10 - Z68.22) Plan Of Treatment Treatment Notes Assessment Notes [...] 1 Week,prn, Reaso n: Progress Notes * FERNANDEZ RANGEL:2000 (24 yo M)Acc No.[id number]:09/09/2024 Progress Notes Patient: ROBERT KIM Provider: BUNNY Hahn :2000 A ge:24 Y S ex:Male Date:09/09/2024 Address:[address] [place] [address], [place], [id number] Pcp:Charlie Sanabria Subjective: * Chief Complaints: * [...] denies any chest pain. Pt works at [employer] and went to their clinic and heart [...] URRENT TOBACCO USE S moking Status: P atmajor does NOT smoke. C affeine: yes, frequency:SOME. [...] 3 . C hronic fatigue - R53.82 4 . B ND 22.0-22.9, adult - Z68.22 Plan: * Treatment: Value Reference Range A [...] by Creatinine 110 >59 - mL/min/1.73m2 * Dora Castelan 09/12/2024 07:05:12 PM EDT >discussed results with pt; faxed to cardiology ?Imaging: Echocardiogram* Brunilda Tabares 09/09/2024 11:24 :50 AM EDT > auth#[id number]; valid 09/09/2024 through 10/08/2024; CPT code 39259; faxed to [facility] Scheduling ?Imaging: Event Recorder ?Imaging: EKG (Performed Date - 09/09/2024)* Annelise Dora 09/12/2024 07:04:13 PM EDT >was seen by [...] T SH 1.74 0.43-5.25 - mU/L * Dora Castelan 09/12/2024 07:04:37 PM EDT >discussed results with [...] Codes: 8 5025 CBC WITH AUTO DIFF, 87044 VENIPUNCT, ROUTINE*, 1036F TOBACCO NON-USER, G8420 BMI<30 AND >=22 CALC & DOCU, G8783 BP SCR PRFRM RCMDD DEFIND SCR INTVL, G8752 MOST RECENT SYSTOLIC BP < 140MM HG, G8754 MOST RECENT DIASTOLIC BP < 90MM HG * Follow Up: 1 Week,prn * Billing Information: * Visit Code: 35954 Office Visit, Est Pt., Level 4. * Procedure Codes: 12260 CBC WITH AUTO DIFF. 10394 VENIPUNCT, ROUTINE*. 1036F TOBACCO NON-USER. G8420 BMI<30 AND >=22 CALC & DOCU. G8783 BP SCR PRFRM RCMDD DEFIND SCR INTVL. G8752 MOST RECENT SYSTOLIC BP < 140MM HG. G8754 MOST RECENT DIASTOLIC BP < 90MM HG. * Electronic signature of Jackelin Castelan APRN on 09/22/2024 at 12:00 PM EDT Sign off status: Pending * Provider: BUNNY Hahn Date: 0 09/09/2024 Generated for Jerry bradley/Yao/Lucinda on: 09/22/2024 12:00 PM EDT History and Physical Notes * HPI (History of Present Illness) Category Sub-Category Detail Notes Category Not es Cardiology Short of Breath Chest Pain Palpitations feels heart racing. Pt states on his way to work yesterday he felt like his heart was racing and he states it lasted about 20 minutes or more. Pt denies any chest pain. Pt works at [employer] and went to their clinic and heart [...]
--- OUTSIDE RECORDS SUMMARY | 2024-09-10 16:30 | XMS_ITS | Encounter Summary ---
Author Organization [facility] Address [address] [place] [address] Phone [email or web address] Care Team Providers Care [employer] Executive Director Name Role Phone Unavailable Primary Care Provider Unavailabl e Reason for Visit * Reason Comments Return to Work / Duty Encounter Details Date Type Department Care Team (Latest Contact Info) Description 09/10/2024 4:30 PM EDT [facility] [place] [address] [facility] [address] [place] [address] [place] [address] [place] [phone] Return to work evaluation (Primary Dx) Social History Tobacco Use Types Packs/Day Years [...] Sign Reading Time Taken Comments Blood Pressure 126/81 09/10/2024 4:23 PM EDT Pulse 94 09/10/2024 4:23 PM EDT Temperature 36.5 C (97.7 F) 09/10/2024 4:23 PM EDT Respiratory Rate 18 09/10/2024 4:23 PM EDT Oxygen Saturation 97% 09/10/2024 4:23 PM EDT Inhaled Oxygen Concentration - - Weight - - Height - - Body Mass Index - - documented in this encounter Patient Instructions * Patient Instructions* Ana Whittaker RN - 09/10/2024 4:30 PM EDT Regular duty 09/10/24. F/u with [facility] and treating doctor as needed. documented in this encounter Progress Notes * Ana Whittaker RN - 09/10/2024 4:30 PM EDT Jayson Rangel is a 24 y.o. male who presents for personal return to work. 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 Russell Previous/current indefinite restrictions? No LDW: 09/08/2024 RELEASE: Regular Duty 09/10/2024 PMLOA. TM reports that he went to his PCP on 09/09/24, the day after he was an emergency run. TM reports that his doctor checked him out and said everything was normal on his EKG and also had lab work completed. TM was given a heart monitor to wear for the next 2 weeks (has extra stick on patches if needed, fully covered by clothing), Scheduled for an echo next week. TM also saw his textile machinery instructor SINDI Galarza and had another EKG. Was told everything was normal on his end, pending scheduling for CT scan. TM was told by textile machinery instructor that he could return to work regular duty in the mean time.No new medication changes. Denies LH/D, CP, or SOB. Gait steady. TM reports he feels ready to RTW. Denies any other concerns. Consulted SINDI Thorpe. Agreed with POC. Visit Vitals BP 126/81 Pulse 94 Temp 97.7 ??F Resp 18 SpO2 97% Smoking Status Never PHQ-9 Total Score: 0 (09/10/2024 4:24 PM) ICD-10-CM ICD-9-CM 1. Return to work evaluation Z76.89 V72.85 Patient Instructions Regular duty 09/10/24. F/u with [facility] and treating doctor as needed. Ana Whittaker RN documented in this encounter Plan of Treatment Not on file documented as of this encounter Visit Diagnoses Diagnosis Return to work evaluation- Primary Other specified examination documented in this encounter
--- OUTSIDE RECORDS SUMMARY | 2024-09-22 12:01 | XMS_ITS | Patient Health Record ---
Author Organization [facility] Address [address] [place] [id number] Care Team Providers Care Sock Mender Name Role Phone Charlie Sanabria Primary Care Provider [phone] Argenis Obrien Unavailable [phone] Dora Castelan Unavailable [phone] Allergies Allergen (clinical drug ingredient) Drug/Non Drug [...] 116 Performing Lab: Notes/Report: Test performed by [facility] [address] [place] [address] , [address], [place] [address] Adolfo Borja MD, Technical Support Professional CLIA: [id number] Sodium 143 135-145 mmol/L Potassium 3.8 3.5-5.3 [...] Interpretation:1.74 Performing Lab: Notes/Report: Test performed by [facility] [address] [place] [address] , [address], [place] [address] Adolfo Borja MD, Technical Support Professional CLIA: [id number] TSH 1.74 0.43-5.25 mU/L EKG Reviewed date:09/12/2024 [...] Status Risk Notes Problem Chronic fatigue syndrome ([id number]) Chronic fatigue (R53.82) Active confirmed Problem 37578126 Hypertension, unspecified type (I10) Active confirmed Problem 213550476 IgA deficiency, 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 [address] [place] [id number] 12/13/2023 Argenis Obrien Hypertension, unspecified type I10 [facility] [address] [facility] 36 [facility] [address] [place] [id number] 09/09/2024 Dora Castelan Heart palpitations R00.2 ; Screening for thyroid disorder Z13.29 ; Chronic fatigue R53.82 and BMI 22.0-22.9, adult Z68.22 [facility] [address] [place] [id number] 09/10/2024 Dora Annelise [facility] [facility] [address] [place] [id number] 09/16/2024 Dora Castelan Assessments Encounter Date Diagnosis [...] adult (ICD-10 - Z68.22) Plan Of Treatment Pending Test Test Name Order Date Echocardiogram 09/09/2024 Event Recorder 09/09/2024 Insurance Providers Payer Name Payer Address Payer Phone Subscriber Number Group Number Insured Name Patient Relationship to Insured Coverage Start Date Coverage End Date [employer]HA [employer] [address] [place] [address] [id number] 1ES ROBERT RANGEL Self - patient is the insured Medical (General) History Medical History History ICD Code HBP IgA Deficiency Surgical History Surgery Date(Month/Year)
--- OUTSIDE RECORDS SUMMARY | 2024-09-22 12:01 | XMS_ITS | Encounter Summary ---
Author Organization [facility] Address [address] [place] [address] Phone [email or web address] Care Team Providers Care Metal Box Maker Name Role Phone Unavailable Primary Care Provider Unavailabl e Reason for Visit * Reason Onset Date Comments Return to Work / Duty 09/10/2024 Encounter Details Date Type Department Care Team (Late st Contact Info) Description 09/10/2024 Telephone [place] [address] [place] [phone] [place] [address] [place] [phone] Social History Tobacco Use Types Packs/Day [...] Tuttle MA - 09/10/2024 3:31 PM EDT Jayson Rangel calls clinic to discuss return to work after personal medical leave of absence for heart issues. WD ID: [id number] Employer: [employer] Date of Hire: 02/07/2023 Cost [...] sent to confirm cost center? No -Bahman Tuttle 09/10/2024 documented in this encounter Plan of Treatment Not on file documented as of this encounter Visit Diagnoses Not on filedocumented in this encounter
--- OUTSIDE RECORDS SUMMARY | 2024-09-22 12:01 | XMS_ITS | Clinical Summary ---
Author Organization [facility] Address [address] [place] [address] Phone [email or web address] Care Team Providers Care Parts Casting Machine Operator Name Role Phone Unavailable Primary Care Provider Unavailabl e Allergies No known active allergies Medications metoprolol succinate XL (TOPROL-XL) 100 MG 24 hr tablet 100 each. 04/22/2021 Act matty Active Problems Problem Noted Date Diagnosed Date Return to work evaluation 09/10/2024 Encounters Date Type Department Care Team Description 09/10/2024 4:30 PM EDT Clinical Support [address] [phone] Ana Whittaker RN Return to work evaluation (Primary Dx) 09/10/[address] [address] Bahman Tuttle MA 09/08/2024 5:30 PM EDT Clinical Support [address] [address] Louann Shipley PA Lightheadedness (Primary [...] (Blood, Capillary) 09/08/2024 5:04 PM EDT Louann DLEONG POINT OF CARE TEST ORDERABLE S Final Result from Last 3 Months Insurance OPT OUT NO COPAY NB
[2024-09-22 12:06] VITALS: BMI 22.4
[2024-09-22] MEDS: IVABRADINE HCL 7.5MG TABLET PO (12:13)
[2024-09-22] MEDS: METOPROLOL TARTRATE 25MG TABLET 25 MG (12:14)
[2024-09-22] MEDS: METOPROLOL TARTRATE 25MG TABLET 50 MG (12:15)
[2024-09-22 12:16] VITALS: BP 125/87; PULSE 75; RESP 16; O2SAT 99
[2024-09-22 12:31] LABS: Chloride 107 mmol/L (98-107); Sodium 139 mmol/L (136-145)
[2024-09-22 12:34] LABS: Blood Urea Nitrogen 13 mg/dl (9-20); Creatinine Clearance Estimated 132 mL/min (50-200); Estimated Glomerular Filt Rate 102 ml/min (>60); GFR (African American) 123 ML/MIN (>60)
[2024-09-22 12:35] LABS: Calcium 9.2 mg/dl (8.4-10.2); Carbon Dioxide 29 mmol/L (22.0-30.0); Glucose 99 mg/dl (74-100)
--- NOTE | 2024-09-22 13:00 | CT_ITS ---
APPROVED REPORT Clinical Tech: CLINICAL INDICATION Chest Pain TECHNIQUE Image Acquisition: A 128 slice MDCT scanner (joiza View) was used for data acquisition. A noncontrast coronary calcium scan was performed. A CT attenuation threshold of 130 Hounsfield units (HU) was used for the detection of calcium in contiguous voxels of 1 sq mm in area to be counted as individual lesions. Bolus tracking in the ascending aorta with a threshold of 180 HU was performed. Immediately afterwards, ECG synchronized cardiac CT was then performed from the cardiac base to apex using retrospective gating with ECG tube current modulation. A total of 85 mL of Isovue 370 mg/mL contrast medium was administered at 5 mL/sec followed by a saline flush using a biphasic injection protocol. A tube voltage of 120 KVp was used. The patient received the following medications prior to the cardiac CT. 75 mg of oral metoprolol 15 mg of oral ivabradine 0.4 mg of sublingual nitroglycerin The average heart rate at the time of acquisition was 59 bpm and regular. Image Reconstruction Transaxial images were reconstructed at 0.67 mm slide thickness. Data was reviewed interactively on an advanced workstation capable of 2 and 3-dimensional displays in all conventional reconstruction formats, including multiplanar reformations, maximum intensity projections, curved multiplanar reformations, and volume rendered reconstructions. When applicable, selected routine images describing the relevant coronary anatomy and pathology were saved and sent to PACS. Complications None Technical Quality Overall image quality was good. Coronary artery opacification was adequate. Total DLP (Dose-Length Product) is 1830.1 mGy-cm. The reported value represents the total of one or more individual components during the CT acquisition of this date and at this time, and as such, the same value may appear in more than one CT report depending on the interpreting/reporting physicians. COMPARISON None FINDINGS CT Coronary Calcium Scoring LMA (Left Main Artery) = 0 LAD (Left Anterior Descending) = 0 LCX (Left Coronary Circumflex) = 0 RCA (Right Coronary Artery) = 0 Total Calcium Score = 0 using the AJ-130 method. The interpretation of the calcium heart score is based on the following continuum*: 0 = no calcified plaque detected (risk of coronary artery disease is very low ??? less than 5%) 1-10 = calcium detected in extremely minimal levels (risk of coronary diseases is still low ??? less than 10%) 11-100 = mild levels of plaque detected with certainty (mild or minimal narrowing of heart arteries is likely) 101-400 = definite,at least moderate levels of plaque detected (relatively high risk of a heart attack within 3-5 years) >401-999 = extensive levels of plaque detected (high risk of heart attack, high levels of vascular disease are present, high likelihood of at least one significant coronary narrowing) *The calcium heart score quantifies the burden of coronary calcification/plaque in the coronary arteries. The calcium heart score is not able to evaluate the presence or burden of non-calcified (i.e. soft) plaque. There is no identifiable calcification in the aortic valve, mitral annulus or mitral valve, pericardium, or myocardium. Coronary CT Angiography The coronary arterial system is left dominant. Quantitative Stenosis Grading: Left Main (LM): The left main originates normally from the left sinus of Valsalva. The LM bifurcates into the left anterior descending artery and left circumflex artery. The LM is patent with no evidence of atherosclerosis. Left Anterior Descending (LAD) and Diagonal Branches: The LAD gives off 3 diagonal branch(es). The LAD and its branches are patent with no evidence of atherosclerosis. There is no evidence of LAD-myocardial bridge. Left Circumflex (LCX) and Obtuse Marginals (OM): The LCX gives off 1 Obtuse Marginal (OM) branch(es). The LCX and its branches are patent with no evidence of atherosclerosis. Right Coronary Artery (RCA): The RCA originates normally from the right sinus of Valsalva. The RCA and its branches are patent with no evidence of atherosclerosis. Non-Coronary Cardiac Findings: Analysis of the left ventricular (LV) structure and function was performed after 3-D reconstruction of the LV from axial images, with user-corrected automatic contouring for assessment of LV volumes and user-defined reconstruction from oblique planes for measurement of 3-D cardiac structure and function. -The left ventricle systolic function is normal. -There is no left atrial appendage filling defect. Two right pulmonary veins and two left pulmonary veins drain normally into the left atrium. -No pericardial thickening or calcification. -Central and branch pulmonary arteries in the [id number] are unremarkable. -Thoracic aorta within the visualized thoracic aortic-branches in the [id number] is unremarkable. Extracardiac Structures No significant extra-cardiac findings. Note, however, that this study is focused on the cardiac findings. IMPRESSION -Absence of coronary calcification with an Agatston score = 0 using the AJ-130 method. -No evidence of significant flow-limiting atherosclerosis of the coronary arteries. -No evidence of coronary anomalies or myocardial bridges. -CAD-RADS 0. Management recommendations per ACC/AHA guidelines*, as clinically appropriate. *Recommendations: CAD RADS 0: Reassurance. Consider non-atherosclerotic causes of chest pain. CAD RADS 1: Consider non-atherosclerotic causes of chest pain. Consider preventive therapy and risk factor modification. CAD RADS 2: Consider non-atherosclerotic causes of chest pain. Consider preventive therapy and risk factor modification, particularly for patients with nonobstructive plaque in multiple segments. CAD RADS 3: Consider further functional testing. Consider symptom-guided anti-ischemic and preventive pharmacotherapy as well as risk factor modification per published guideline statements. CAD RADS 4A: Consider further functional testing or invasive coronary angiography with revascularization per published guideline statements. Consider symptom-guided anti-ischemic and preventive pharmacotherapy as well as risk factor modification per published guideline statements. CAD RADS 4B: Invasive coronary angiography recommended with revascularization per published guideline statements. Consider symptom-guided anti-ischemic and preventive pharmacotherapy as well as risk factor modification per published guideline statements. CAD RADS 5: Consider invasive angiography and/or viability assessment with revascularization per published guideline statements. Consider symptom-guided anti-ischemic and preventive pharmacotherapy as well as risk factor modification per published guideline statements. CRITICAL RESULT None COMMUNICATION Per this written report The coronary and cardiac findings of this CCTA were reviewed, reported, and signed by Jad Rao MD (Smoking Tobacco Packing Machine Hand) Conclusion Electronically signed by : Nani Rao MD 09/22/2024 18:48:11
[2024-09-22 13:10] VITALS: BP 122/80; PULSE 59; RESP 16; O2SAT 100
[2024-09-22 13:13] VITALS: BP 114/73; PULSE 61; RESP 16; O2SAT 100
[2024-09-22 13:16] VITALS: BP 106/62; PULSE 60; RESP 16; O2SAT 100
[2024-09-22 13:19] VITALS: BP 103/59; PULSE 62; RESP 16; O2SAT 100
[2024-09-22] MEDS: SODIUM CHLORIDE 0.9% 10ML SYR (RAD ONLY) 10 ML IV (13:24)
[2024-09-22] MEDS: 0.9 % SODIUM CHLORIDE 50 ML VIAL IV (13:24)
[2024-09-22] MEDS: IOPAMIDOL-370 (76%);100ML BOTTLE 85 ML IV (13:24)
== END 2024-09-22 13:32 | disposition home or self-care (01) ==
PROVIDERS: PCP Nurse Practitioner Family; Visit Provider Physician Assistant
DX: R00.2 Palpitations (principal); R06.02 Shortness of breath; R53.83 Other fatigue; Z82.49 Family history of ischemic heart disease and other diseases of the circulatory system
CPT/HCPCS: 75574; 80048; Q9967